=== PATIENT | male | born 1980 | race Caucasian/White ===

== ENCOUNTER 2017-08-28 04:59 | Emergency (ER) | payer SELFPAY ==
[2017-08-28] MEDS ORDERED: Ketorolac 30 MG/ML SDV IVPUSH ONE (05:10)
[2017-08-28] MEDS ORDERED: Ondansetron 4 MG/2 ML SDV IVPUSH ONE (05:10)
--- NOTE | 2017-08-28 05:10 | EDM.PDOC ---
ED HPI GENERAL MEDICAL PROBLEM - General Chief Complaint: Flank Pain Stated Complaint: PAIN ON RIGHT SIDE Time Seen by Provider: 08/28/17 06:20 - History of Present Illness INITIAL COMMENTS - FREE TEXT/NARRATIVE: HISTORY AND PHYSICAL: History of present illness: Patient 37-year-old white male sensory concern of acute right flank pain with associated nausea woken from sleep he denies trauma fever chills chest pain shortness of breath or other concern he denies history urolithiasis Review of systems: As per history of present illness and below otherwise all systems reviewed and negative. Past medical history: As per history of present illness and as reviewed below otherwise noncontributory. Surgical history: As per history of present illness and as reviewed below otherwise noncontributory. Social history: No reported history of drug or alcohol abuse. Family history: As per history of present illness and as reviewed below otherwise noncontributory. Physical exam: HEENT: Atraumatic, normocephalic, pupils reactive, negative for conjunctival pallor or scleral icterus, mucous membranes moist, throat clear, neck supple, nontender, trachea midline. Lungs: Clear to auscultation, breath sounds equal bilaterally, chest nontender. Heart: S1S2, regular, negative for clicks, rubs, or JVD. Abdomen: Soft, nondistended, nontender. Negative for masses or hepatosplenomegaly. Right-sided costovertebral tenderness. Pelvis: Stable nontender. Genitourinary: Deferred. Rectal: Deferred. Extremities: Atraumatic, negative for cords or calf pain. Neurovascular unremarkable. Neuro: Awake, alert, oriented. Cranial nerves II through XII unremarkable. Cerebellum unremarkable. Motor and sensory unremarkable throughout. Exam nonfocal. Diagnostics: CBC CMP UA urine culture and sensitivity CT abdomen and pelvis Therapeutics: Saline 1 L bolus Flomax 0.4 mg by mouth Toradol 30 mg IV Zofran 4 mg IV Dilaudid 1 mg IV Impression: #1 acute right flank pain Definitive disposition and diagnosis as appropriate pending reevaluation and review of above. right flank Pain Score (Numeric/FACES): 9 - Related Data Allergies Allergy/AdvReac Type Severity Reaction Status Date / Time No Known Allergies Allergy Verified 08/28/17 05:06 Home Meds: Home Meds . [No Known Home Meds] 08/28/17 [History] ED ROS GENERAL - Review of Systems Review Of Systems: ROS reveals no pertinent complaints other than HPI. ED EXAM, GENERAL - Physical Exam Exam: See Below (See dictation) Course - Vital Signs Last Recorded V/S: Last Vital Signs Temp 36.2 C 08/28/17 05:07 Pulse 74 08/28/17 06:05 Resp 16 08/28/17 06:05 BP 131/82 08/28/17 06:05 Pulse Ox 97 08/28/17 06:05 - Orders/Labs/Meds Orders: Active Orders 24 hr Category Date Time Status Abdomen Pelvis wo Cont [CT] Stat Exams 08/28/17 05:11 Taken CULTURE URINE [RM] Stat Lab 08/28/17 05:15 Received Labs: Laboratory Tests 08/28/17 08/28/17 08/28/17 Range/Units 05:15 05:23 05:23 WBC 9.98 (4.0-11.0) K/uL RBC 5.72 (4.50-5.90) M/uL Hgb 18.3 H (13.0-17.0) g/dL Hct 52.0 H (38.0-50.0) % MCV 90.9 (80.0-98.0) fL MCH 32.0 (27.0-32.0) pg MCHC 35.2 (31.0-37.0) g/dL RDW Std Deviation 43.3 (28.0-62.0) fl RDW Coeff of Anabelle 13 (11.0-15.0) % Plt Count 240 (150-400) K/uL MPV 9.70 (7.40-12.00) fL Neut % (Auto) 54.3 (48.0-80.0) % Lymph % (Auto) 34.0 (16.0-40.0) % [place] % (Auto) 9.5 (0.0-15.0) % Eos % (Auto) 1.9 (0.0-7.0) % Baso % (Auto) 0.3 (0.0-1.5) % Neut # (Auto) 5.4 (1.4-5.7) K/uL Lymph # (Auto) 3.4 H (0.6-2.4) K/uL [place] # (Auto) 1.0 H (0.0-0.8) K/uL Eos # (Auto) 0.2 (0.0-0.7) K/uL Baso # (Auto) 0.0 (0.0-0.1) K/uL Nucleated RBC % 0.0 /100WBC Nucleated RBCs # 0 K/uL Sodium 142 (136-148) mmol/L Potassium 3.9 (3.5-5.1) mmol/L Chloride 106 (98-107) mmol/L Carbon Dioxide 26.1 (21.0-32.0) mmol/L BUN 11 (7.0-18.0) mg/dL Creatinine 1.2 (0.8-1.3) mg/dL Est Cr Clr Drug Dosing 90.71 mL/min Estimated GFR (MDRD) > 60.0 ml/min Glucose 110 H (74-106) mg/dL Calcium 9.0 (8.5-10.1) mg/dL Total Bilirubin 0.3 (0.2-1.0) mg/dL AST 24 (15-37) IU/L ALT 65 H (14-63) IU/L Alkaline Phosphatase 92 (46-116) U/L Total Protein 7.2 (6.4-8.2) g/dL Albumin 4.0 (3.4-5.0) g/dL Globulin 3.2 (2.0-3.5) g/dL Albumin/Globulin Ratio 1.3 (1.3-2.8) Urine Color DARK YELLOW Urine Appearance SLT CLOUDY Urine pH 5.5 (5.0-8.0) Ur Specific [place] >= 1.030 (1.001-1.035) Urine Protein 30 (NEGATIVE) mg/dL Urine Glucose (UA) NEGATIVE (NEGATIVE) mg/dL Urine Ketones TRACE H (NEGATIVE) mg/dL Urine Occult Blood LARGE H (NEGATIVE) Urine Nitrite NEGATIVE (NEGATIVE) Urine Bilirubin SMALL H (NEGATIVE) Urine Ictotest NEGATIVE Urine Urobilinogen 0.2 (<2.0) EU/dL Ur Leukocyte Esterase NEGATIVE (NEGATIVE) Urine RBC TOO NUMBEROUS TO CT (0-2/HPF) Urine WBC 0-2 (0-5/HPF) Ur Epithelial Cells RARE (NONE-FEW) Calcium Oxalate Crystal MODERATE (NEGATIVE) Urine Bacteria FEW (NEGATIVE) Meds: Medications Discontinued Medications Generic Name Dose Route Start Last Admin Trade Name Freq PRN Reason Stop Dose Admin Hydromorphone HCl 1 mg 08/28/17 05:11 08/28/17 05:30 Dilaudid IVPUSH 08/28/17 05:12 1 mg ONETIME ONE Administration Sodium Chloride 1,000 mls @ 999 mls/hr 08/28/17 05:11 08/28/17 05:30 Normal Saline IV 08/28/17 06:11 999 mls/hr .Bolus ONE Administration Ketorolac Tromethamine 30 mg 08/28/17 05:10 08/28/17 05:29 Toradol IVPUSH 08/28/17 05:11 30 mg ONETIME ONE Administration Ondansetron HCl 4 mg 08/28/17 05:10 08/28/17 05:29 Zofran IVPUSH 08/28/17 05:11 4 mg ONETIME ONE Administration Tamsulosin HCl 0.4 mg 08/28/17 05:15 08/28/17 05:29 Flomax PO 08/28/17 05:16 0.4 mg ONETIME ONE Administration Departure - Departure Time of Disposition: 06:20 Disposition: Home, Self-Care 01 Condition: Good Clinical Impression: Ureterolithiasis - Discharge Information Referrals: PCP,None [Primary Care Provider] - Forms: ED Department Discharge Additional Instructions: The following information is given to patients seen in the emergency department who are being discharged to home. This information is to outline your options for follow-up care. We provide all patients seen in our emergency department with a follow-up referral. The need for follow-up, as well as the timing and circumstances, are variable depending upon the specifics of your emergency department visit. If you don't have a primary care physician on staff, we will provide you with a referral. We always advise you to contact your personal physician following an emergency department visit to inform them of the circumstance of the visit and for follow-up with them and/or the need for any referrals to a consulting specialist. The emergency department will also refer you to a specialist when appropriate. This referral assures that you have the opportunity for followup care with a specialist. All of these measure are taken in an effort to provide you with optimal care, which includes your followup. Under all circumstances we always encourage you to contact your private physician who remains a resource for coordinating your care. When calling for followup care, please make the office aware that this follow-up is from your recent emergency room visit. If for any reason you are refused follow-up, please contact the [facility] emergency department at and asked to speak to the emergency department charge nurse. Yanni Barnes as prescribed follow-up urology michael referral call to schedule appointment return as needed as discussed - My Orders Last 24 Hours: My Active Orders 08/28/17 05:11 Abdomen Pelvis wo Cont [CT] Stat 08/28/17 05:15 CULTURE URINE [RM] Stat - Assessment/Plan Last 24 Hours: My Active Orders 08/28/17 05:11 Abdomen Pelvis wo Cont [CT] Stat 08/28/17 05:15 CULTURE URINE [RM] Stat
[2017-08-28] MEDS ORDERED: Sodium Chloride 0.9% 1,000 ML IV ONE (05:11)
[2017-08-28] MEDS ORDERED: HYDROmorphone 1 MG/ML Syringe IVPUSH ONE (05:11)
[2017-08-28] MEDS ORDERED: Tamsulosin 0.4 MG Cap.ER PO ONE (05:15)
[2017-08-28 05:59] LABS: CHLORIDE,CL 106 mmol/L (98-107); SODIUM,NA 142 mmol/L (136-148)
--- NOTE | 2017-08-28 10:54 | CT ---
EXAM DATE: 08/28/17 PATIENT'S AGE: 37 Patient: AMANDA MONGE Facility: [place], [place] Site . Site : 1980 Study: CT Abdomen/Pelvis [id number] 5:59:23 AM Ordering Physician: Kate Dumont Final Report: Indication: Flank pain. Technique: CT of the abdomen pelvis. No intravenous contrast. Coronal/ sagittal reconstructed images. Comparison: None. Findings: Lung bases: No pleural or pericardial effusion. The heart size is normal. There is dependent atelectasis. There is no acute airspace disease. There is no basilar pneumothorax. Abdomen/pelvis: No solid hepatic mass. No dilation of intrahepatic biliary radicles. No perihepatic ascites. No adrenal mass. Spleen size is normal. No pancreatic mass or pancreatic duct dilation. Benign left renal cyst. This measures 4.7 cm in dimension. Mild right hydronephrosis and hydroureter. There is a stone present in the right proximal ureter, which measures 3 millimeters on series 201, image 82. This is seen at the level of L3. Pelvic phleboliths. No wall thickening within the small bowel or colon. No perienteric edema. No transition point. Anastomotic sutures present about the terminal ileum. No abdominal aortic aneurysm. No adenopathy by size criteria in the pelvis, retroperitoneum, gastrohepatic ligament. Bone windows demonstrate no lytic or blastic bone lesions. The alignment is preserved. On sagittal reconstruction images, vertebral body heights are maintained. Impression: 1. 3 millimeter stone in the right proximal ureter, with mild right hydronephrosis and hydroureter. 2. There are no additional acute findings. Please note that all CT scans at this facility use dose modulation, iterative reconstruction, and/or weight-based dosing when appropriate to reduce radiation dose to as low as reasonably achievable. Dictated by Dagoberto Renner MD @ Aug 28 2017 6:03AM (Electronic Signature) Report Signed by Proxy. VICKIE
== END 2017-08-28 06:37 | disposition home or self-care (01) ==
LOC: MW.ED 04:59
DX: N13.2 Hydronephrosis with renal and ureteral calculous obstruction (principal)
CPT/HCPCS: 74176; 80053; 81001; 85025; 87086; 96361; 96374; 96375; 99284; A9270; J1170; J1885; J2405; J7040; 99283

== ENCOUNTER 2017-10-28 02:05 | Observation (INO) | payer OTHER ==
[2017-10-28] MEDS ORDERED: Ondansetron 4 MG/2 ML SDV IVPUSH ONE (02:20)
[2017-10-28] MEDS ORDERED: Ketorolac 30 MG/ML SDV IVPUSH ONE (02:20)
[2017-10-28] MEDS ORDERED: Tamsulosin 0.4 MG Cap.ER PO ONE (02:20)
[2017-10-28] MEDS: Sodium Chloride 0.9% 1,000 ML IV SCH ×4 (02:32→21:50)
[2017-10-28 02:49] LABS: CHLORIDE,CL 105 mmol/L (98-107); SODIUM,NA 139 mmol/L (136-148)
[2017-10-28] MEDS ORDERED: HYDROmorphone 1 MG/ML Syringe IVPUSH ONE (02:54)
--- NOTE | 2017-10-28 03:25 | EDM.PDOC ---
ED HPI GENERAL MEDICAL PROBLEM - General Chief Complaint: Abdominal Pain Stated Complaint: PAIN ON RIGHT SIDE Time Seen by Provider: 10/28/17 02:58 - History of Present Illness INITIAL COMMENTS - FREE TEXT/NARRATIVE: HISTORY AND PHYSICAL: History of present illness: Patient 37-year-old white male presents with a concern of acute left flank pain he has had a history of urolithiasis he's had some nausea he denies trauma denies fever denies chills Review of systems: As per history of present illness and below otherwise all systems reviewed and negative. Past medical history: As per history of present illness and as reviewed below otherwise noncontributory. Surgical history: As per history of present illness and as reviewed below otherwise noncontributory. Social history: No reported history of drug or alcohol abuse. Family history: As per history of present illness and as reviewed below otherwise noncontributory. Physical exam: HEENT: Atraumatic, normocephalic, pupils reactive, negative for conjunctival pallor or scleral icterus, mucous membranes moist, throat clear, neck supple, nontender, trachea midline. Lungs: Clear to auscultation, breath sounds equal bilaterally, chest nontender. Heart: S1S2, regular, negative for clicks, rubs, or JVD. Abdomen: Soft, nondistended, nontender. Negative for masses or hepatosplenomegaly. Left-sided costovertebral tenderness. Pelvis: Stable nontender. Genitourinary: Deferred. Rectal: Deferred. Extremities: Atraumatic, negative for cords or calf pain. Neurovascular unremarkable. Neuro: Awake, alert, oriented. Cranial nerves II through XII unremarkable. Cerebellum unremarkable. Motor and sensory unremarkable throughout. Exam nonfocal. Diagnostics: CBC CMP UA urine culture and sensitivity CT abdomen and pelvis Therapeutics: Normal saline 1 L bolus Toradol 30 mg IV Zofran 4 mg IV Dilaudid 1 mg IV Flomax 0.4 mg by mouth Impression: #1 acute left flank pain #2 history of ureterolithiasis Definitive disposition and diagnosis as appropriate pending reevaluation and review of above. Abdomen,Right lumbar Pain Score (Numeric/FACES): 7 - Related Data Allergies Allergy/AdvReac Type Severity Reaction Status Date / Time No Known Allergies Allergy Verified 10/28/17 02:30 Home Meds: Home Meds . [No Known Home Meds] 08/28/17 [History] Past Medical History HEENT History: Reports: None Cardiovascular History: Reports: None Respiratory History: Reports: None Gastrointestinal History: Reports: Other (See Below) Other Gastrointestinal History: crohn's ds Genitourinary History: Reports: None Musculoskeletal History: Reports: None Neurological History: Reports: None Psychiatric History: Reports: None Endocrine/Metabolic History: Reports: None Hematologic History: Reports: None Oncologic (Cancer) History: Reports: None Dermatologic History: Reports: None - Past Surgical History Cardiovascular Surgical History: Reports: None GI Surgical History: Reports: Colonoscopy Social & Family History - Family History Family Medical History: Noncontributory - Tobacco Use Smoking Status *Q: Current Every Day Smoker Years of Tobacco use: 24 Packs/Tins Daily: 1 - Recreational Drug Use Recreational Drug Use: No ED ROS GENERAL - Review of Systems Review Of Systems: ROS reveals no pertinent complaints other than HPI. ED EXAM, GENERAL - Physical Exam Exam: See Below (See dictation) Course - Vital Signs Last Recorded V/S: Last Vital Signs Temp 36.4 C 10/28/17 02:05 Pulse 84 10/28/17 02:05 Resp 18 10/28/17 02:05 BP 139/96 H 10/28/17 02:05 Pulse Ox 94 L 10/28/17 02:05 - Orders/Labs/Meds Orders: Active Orders 24 hr Category Date Time Status Abdomen Pelvis wo Cont [CT] Stat Exams 10/28/17 02:19 Taken CULTURE URINE [RM] Stat Lab 10/28/17 02:31 Ordered UA W/MICROSCOPIC [URIN] Stat Lab 10/28/17 02:31 Ordered Sodium Chloride 0.9% [Normal Saline] 1,000 ml Med 10/28/17 02:30 Active IV ASDIRECTED Medication Orders Sodium Chloride (Normal Saline) 1,000 mls @ 999 mls/hr IV ASDIRECTED JACQUELINE Last Admin: 10/28/17 02:32 Dose: 999 mls/hr Labs: Laboratory Tests 10/28/17 10/28/17 10/28/17 Range/Units 02:20 02:20 02:31 WBC 10.47 (4.0-11.0) K/uL RBC 5.37 (4.50-5.90) M/uL Hgb 17.4 H (13.0-17.0) g/dL Hct 48.9 (38.0-50.0) % MCV 91.1 (80.0-98.0) fL MCH 32.4 H (27.0-32.0) pg MCHC 35.6 (31.0-37.0) g/dL RDW Std Deviation 43.0 (28.0-62.0) fl RDW Coeff of Anabelle 13 (11.0-15.0) % Plt Count 208 (150-400) K/uL MPV 9.60 (7.40-12.00) fL Neut % (Auto) 63.9 (48.0-80.0) % Lymph % (Auto) 25.2 (16.0-40.0) % [place] % (Auto) 8.9 (0.0-15.0) % Eos % (Auto) 1.7 (0.0-7.0) % Baso % (Auto) 0.3 (0.0-1.5) % Neut # (Auto) 6.7 H (1.4-5.7) K/uL Lymph # (Auto) 2.6 H (0.6-2.4) K/uL [place] # (Auto) 0.9 H (0.0-0.8) K/uL Eos # (Auto) 0.2 (0.0-0.7) K/uL Baso # (Auto) 0.0 (0.0-0.1) K/uL Nucleated RBC % 0.0 /100WBC Nucleated RBCs # 0 K/uL Sodium 139 (136-148) mmol/L Potassium 3.7 (3.5-5.1) mmol/L Chloride 105 (98-107) mmol/L Carbon Dioxide 26.6 (21.0-32.0) mmol/L BUN 16 (7.0-18.0) mg/dL Creatinine 1.3 (0.8-1.3) mg/dL Est Cr Clr Drug Dosing 83.74 mL/min Estimated GFR (MDRD) > 60.0 ml/min Glucose 149 H (74-106) mg/dL Calcium 8.4 L (8.5-10.1) mg/dL Total Bilirubin 0.3 (0.2-1.0) mg/dL AST 20 (15-37) IU/L ALT 47 (14-63) IU/L Alkaline Phosphatase 85 (46-116) U/L Total Protein 6.7 (6.4-8.2) g/dL Albumin 3.5 (3.4-5.0) g/dL Globulin 3.2 (2.0-3.5) g/dL Albumin/Globulin Ratio 1.1 L (1.3-2.8) Urine Color YELLOW Urine Appearance HAZY Urine pH 5.0 (5.0-8.0) Ur Specific [place] 1.020 (1.001-1.035) Urine Protein NEGATIVE (NEGATIVE) mg/dL Urine Glucose (UA) NEGATIVE (NEGATIVE) mg/dL Urine Ketones NEGATIVE (NEGATIVE) mg/dL Urine Occult Blood LARGE H (NEGATIVE) Urine Nitrite NEGATIVE (NEGATIVE) Urine Bilirubin NEGATIVE (NEGATIVE) Urine Urobilinogen 0.2 (<2.0) EU/dL Ur Leukocyte Esterase NEGATIVE (NEGATIVE) Urine RBC 50-60 (0-2/HPF) Urine WBC 0-2 (0-5/HPF) Ur Epithelial Cells RARE (NONE-FEW) Urine Bacteria FEW (NEGATIVE) Meds: Medications Generic Name Dose Route Start Last Admin Trade Name Brianna PRN Reason Stop Dose Admin Sodium Chloride 1,000 mls @ 999 mls/hr 10/28/17 02:30 10/28/17 02:32 Normal Saline IV 999 mls/hr ASDIRECTED JACQUELINE Administration Discontinued Medications Generic Name Dose Route Start Last Admin Trade Name Brianna PRN Reason Stop Dose Admin Hydromorphone HCl 1 mg 10/28/17 02:54 10/28/17 02:58 Dilaudid IVPUSH 10/28/17 02:55 1 mg ONETIME ONE Administration Ketorolac Tromethamine 30 mg 10/28/17 02:20 10/28/17 02:32 Toradol IVPUSH 10/28/17 02:21 30 mg ONETIME ONE Administration Ondansetron HCl 4 mg 10/28/17 02:20 10/28/17 02:32 Zofran IVPUSH 10/28/17 02:21 4 mg ONETIME ONE Administration Tamsulosin HCl 0.4 mg 10/28/17 02:20 10/28/17 02:32 Flomax PO 10/28/17 02:21 0.4 mg ONETIME ONE Administration Departure - Departure Time of Disposition: 03:23 Disposition: Refer to Observation Condition: Good Clinical Impression: Ureterolithiasis - Discharge Information Referrals: PCP,None [Primary Care Provider] - - My Orders Last 24 Hours: My Active Orders 10/28/17 02:19 Abdomen Pelvis wo Cont [CT] Stat 10/28/17 02:30 Sodium Chloride 0.9% [Normal Saline] 1,000 ml IV ASDIRECTED 10/28/17 02:31 CULTURE URINE [RM] Stat UA W/MICROSCOPIC [URIN] Stat - Assessment/Plan Last 24 Hours: My Active Orders 10/28/17 02:19 Abdomen Pelvis wo Cont [CT] Stat 10/28/17 02:30 Sodium Chloride 0.9% [Normal Saline] 1,000 ml IV ASDIRECTED 10/28/17 02:31 CULTURE URINE [RM] Stat UA W/MICROSCOPIC [URIN] Stat
[2017-10-28] MEDS ORDERED: Ondansetron 4 MG/2 ML SDV IVPUSH PRN ×2 (03:31→03:41)
[2017-10-28] MEDS: HYDROmorphone 2 MG/ML SDV IVPUSH PRN ×2 (10:52→16:16)
--- NOTE | 2017-10-28 15:20 | PCM.PREANE ---
Preanesthetic Assessment - Anesthesia/Transfusion/Family Hx Anesthesia History: Prior Anesthesia Without Reaction Family History of Anesthesia Reaction: No Transfusion History: No Prior Transfusion(s) Intubation History: Unknown - Review of Systems General: No Symptoms Pulmonary: No Symptoms Cardiovascular: No Symptoms Gastrointestinal: No Symptoms Neurological: No Symptoms Other: Reports: None - Physical Assessment O2 Sat by Pulse Oximetry: 95 Respiratory Rate: 16 Vital Signs: Last Vital Signs Temp 36.4 C 10/28/17 12:00 Pulse 59 L 10/28/17 12:00 Resp 16 10/28/17 12:00 BP 148/81 H 10/28/17 12:00 Pulse Ox 95 10/28/17 12:00 Height: 1.83 m Weight: 114 kg ASA Class: 2E Mental Status: Alert & Oriented x3 Airway Class: Mallampati = 2 Dentition: Reports: Dentures (upper and lower) Thyro-Mental Finger Breadths: 3 Mouth Opening Finger Breadths: 3 ROM/Head Extension: Full Lungs: Clear to Auscultation, Normal Respiratory Effort Cardiovascular: Regular Rate, Regular Rhythm - Lab Values: Laboratory Last Values WBC 10.47 K/uL (4.0-11.0) 10/28/17 02:20 RBC 5.37 M/uL (4.50-5.90) 10/28/17 02:20 Hgb 17.4 g/dL (13.0-17.0) H 10/28/17 02:20 Hct 48.9 % (38.0-50.0) 10/28/17 02:20 MCV 91.1 fL (80.0-98.0) 10/28/17 02:20 MCH 32.4 pg (27.0-32.0) H 10/28/17 02:20 MCHC 35.6 g/dL (31.0-37.0) 10/28/17 02:20 RDW Std Deviation 43.0 fl (28.0-62.0) 10/28/17 02:20 RDW Coeff of Anabelle 13 % (11.0-15.0) 10/28/17 02:20 Plt Count 208 K/uL (150-400) 10/28/17 02:20 MPV 9.60 fL (7.40-12.00) 10/28/17 02:20 Neut % (Auto) 63.9 % (48.0-80.0) 10/28/17 02:20 Lymph % (Auto) 25.2 % (16.0-40.0) 10/28/17 02:20 [place] % (Auto) 8.9 % (0.0-15.0) 10/28/17 02:20 Eos % (Auto) 1.7 % (0.0-7.0) 10/28/17 02:20 Baso % (Auto) 0.3 % (0.0-1.5) 10/28/17 02:20 Neut # (Auto) 6.7 K/uL (1.4-5.7) H 10/28/17 02:20 Lymph # (Auto) 2.6 K/uL (0.6-2.4) H 10/28/17 02:20 [place] # (Auto) 0.9 K/uL (0.0-0.8) H 10/28/17 02:20 Eos # (Auto) 0.2 K/uL (0.0-0.7) 10/28/17 02:20 Baso # (Auto) 0.0 K/uL (0.0-0.1) 10/28/17 02:20 Nucleated RBC % 0.0 /100WBC 10/28/17 02:20 Nucleated RBCs # 0 K/uL 10/28/17 02:20 Sodium 139 mmol/L (136-148) 10/28/17 02:20 Potassium 3.7 mmol/L (3.5-5.1) 10/28/17 02:20 Chloride 105 mmol/L (98-107) 10/28/17 02:20 Carbon Dioxide 26.6 mmol/L (21.0-32.0) 10/28/17 02:20 BUN 16 mg/dL (7.0-18.0) 10/28/17 02:20 Creatinine 1.3 mg/dL (0.8-1.3) 10/28/17 02:20 Est Cr Clr Drug Dosing 83.74 mL/min 10/28/17 02:20 Estimated GFR (MDRD) > 60.0 ml/min 10/28/17 02:20 Glucose 149 mg/dL (74-106) H 10/28/17 02:20 Calcium 8.4 mg/dL (8.5-10.1) L 10/28/17 02:20 Total Bilirubin 0.3 mg/dL (0.2-1.0) 10/28/17 02:20 AST 20 IU/L (15-37) 10/28/17 02:20 ALT 47 IU/L (14-63) 10/28/17 02:20 Alkaline Phosphatase 85 U/L (46-116) 10/28/17 02:20 Total Protein 6.7 g/dL (6.4-8.2) 10/28/17 02:20 Albumin 3.5 g/dL (3.4-5.0) 10/28/17 02:20 Globulin 3.2 g/dL (2.0-3.5) 10/28/17 02:20 Albumin/Globulin Ratio 1.1 (1.3-2.8) L 10/28/17 02:20 Urine Color YELLOW 10/28/17 02:31 Urine Appearance HAZY 10/28/17 02:31 Urine pH 5.0 (5.0-8.0) 10/28/17 02:31 Ur Specific [place] 1.020 (1.001-1.035) 10/28/17 02:31 Urine Protein NEGATIVE mg/dL (NEGATIVE) 10/28/17 02:31 Urine Glucose (UA) NEGATIVE mg/dL (NEGATIVE) 10/28/17 02:31 Urine Ketones NEGATIVE mg/dL (NEGATIVE) 10/28/17 02:31 Urine Occult Blood LARGE (NEGATIVE) H 10/28/17 02:31 Urine Nitrite NEGATIVE (NEGATIVE) 10/28/17 02:31 Urine Bilirubin NEGATIVE (NEGATIVE) 10/28/17 02:31 Urine Urobilinogen 0.2 EU/dL (<2.0) 10/28/17 02:31 Ur Leukocyte Esterase NEGATIVE (NEGATIVE) 10/28/17 02:31 Urine RBC 50-60 (0-2/HPF) 10/28/17 02:31 Urine WBC 0-2 (0-5/HPF) 10/28/17 02:31 Ur Epithelial Cells RARE (NONE-FEW) 10/28/17 02:31 Urine Bacteria FEW (NEGATIVE) 10/28/17 02:31 - Allergies Allergies/Adverse Reactions: Allergies Allergy/AdvReac Type Severity Reaction Status Date / Time No Known Allergies Allergy Verified 10/28/17 02:30 - Blood Blood Available: No - Anesthesia Plan Pre-Op Medication Ordered: None - Acknowledgements Anesthesia Type Planned: General Anesthesia Pt an Appropriate Candidate for the Planned Anesthesia: Yes Alternatives and Risks of Anesthesia Discussed w Pt/Guardian: Yes Pt/Guardian Understands and Agrees with Anesthesia Plan: Yes PreAnesthesia Questionnaire HEENT History: Reports: None Cardiovascular History: Reports: None Respiratory History: Reports: None Gastrointestinal History: Reports: Other (See Below) Other Gastrointestinal History: crohn's ds Genitourinary History: Reports: Other (See Below) Other Genitourinary History: Urolithiasis Musculoskeletal History: Reports: None Neurological History: Reports: None Psychiatric History: Reports: None Endocrine/Metabolic History: Reports: Obesity/BMI 30+ Hematologic History: Reports: None Oncologic (Cancer) History: Reports: None Dermatologic History: Reports: None - Infectious Disease History Infectious Disease History: Reports: Chicken Pox - Past Surgical History Cardiovascular Surgical History: Reports: None GI Surgical History: Reports: Colonoscopy, Other (See Below) (bowel anastomosis sec. to Crohns disease and anastomosis take-down) Male Surgical History: Reports: None Musculoskeletal Surgical History: Reports: Arthroscopic Knee (left ACL repair), Shoulder Surgery (left shoulder ligament recostruction), Other (See Below) ( left thumb ligaments repair) - SUBSTANCE USE Smoking Status *Q: Current Every Day Smoker (1 ppd) Tobacco Use Within Last Twelve Months: Cigarettes Recreational Drug Use History: No - HOME MEDS Home Medications: Home Meds . [No Known Home Meds] 08/28/17 [History] - CURRENT (IN HOUSE) MEDS Current Meds: Current Medications Hydromorphone HCl (Dilaudid) 1 mg IVPUSH Q4H PRN PRN Reason: Pain (severe 7-10) Last Admin: 10/28/17 10:52 Dose: 1 mg Sodium Chloride (Normal Saline) 1,000 mls @ 125 mls/hr IV ASDIRECTED JACQUELINE Last Admin: 10/28/17 10:26 Dose: 200 mls/hr Ondansetron HCl (Zofran) 4 mg IVPUSH Q4H PRN PRN Reason: Vomiting Discontinued Medications Hydromorphone HCl (Dilaudid) 1 mg IVPUSH ONETIME ONE Stop: 10/28/17 02:55 Last Admin: 10/28/17 02:58 Dose: 1 mg Sodium Chloride (Normal Saline) 1,000 mls @ 200 mls/hr IV ASDIRECTED JACQUELINE Last Admin: 10/28/17 05:25 Dose: 999 mls/hr Ketorolac Tromethamine (Toradol) 30 mg IVPUSH ONETIME ONE Stop: 10/28/17 02:21 Last Admin: 10/28/17 02:32 Dose: 30 mg Ondansetron HCl (Zofran) 4 mg IVPUSH ONETIME ONE Stop: 10/28/17 02:21 Last Admin: 10/28/17 02:32 Dose: 4 mg Ondansetron HCl (Zofran) 4 mg IVPUSH Q4H PRN PRN Reason: Vomiting Tamsulosin HCl (Flomax) 0.4 mg PO ONETIME ONE Stop: 10/28/17 02:21 Last Admin: 10/28/17 02:32 Dose: 0.4 mg
--- NOTE | 2017-10-28 16:26 | CT ---
EXAM DATE: 10/28/17 PATIENT'S AGE: 37 Patient: AMANDA MONGE Facility: [place], [place] Site . Site : 1980 Study: CT Abdomen/Pelvis W/O [id number]/[id number] 2:55:25 AM Ordering Physician: Doctor Hickey Final Report: INDICATION: Right flank pain TECHNIQUE: CT Abdomen and pelvis without i.v. contrast. Coronal and sagittal reformats were obtained. CONTRAST: None COMPARISON: 08/28/2017 FINDINGS: Lower chest: Mild bibasilar ground-glass atelectasis present. Discoid atelectasis is also noted in the left lower lobe. Liver: Unremarkable. Spleen: Unremarkable. Pancreas: Unremarkable. Gallbladder: Unremarkable. Kidney: There is a 6 mm stone present in the distal left ureter causing mild left hydroureter and moderate right renal pelvic caliectasis. There is a lobulated hypodense lesion in the anterior mid zone of the left kidney measuring 5.2 x 4.6 cm. Adrenal: Unremarkable. Bowel: Unremarkable. The appendix is not visualized and likely surgically absent. Vascular: Unremarkable. Lymph: Unremarkable. Peritoneum: Unremarkable. No pneumoperitoneum is seen. No significant ascites is noted. Pelvis: Unremarkable. Soft tissue: Unremarkable. Bone: Unremarkable for age. IMPRESSIONS: 1. There is a 6 mm stone present in the distal left ureter causing mild left hydroureter and moderate right renal pelvic caliectasis. 2. There is a lobulated hypodense lesion in the anterior mid zone of the left kidney measuring 5.2 x 4.6 cm. It is incompletely assessed without contrast and not significantly changed from prior exam. Further evaluation with outpatient ultrasound or contrast enhanced MRI is recommended. Dictated by Fabrizio Montes MD @ 10/28/2017 3:10:17 AM Please note that all CT scans at this facility use dose modulation, iterative reconstruction, and/or weight-based dosing when appropriate to reduce radiation dose to as low as reasonably achievable. Dictated by: Fabrizio Montes MD @ 10/28/2017 03:10:20 (Electronic Signature) MTDD
[2017-10-28] MEDS ORDERED: Iopamidol 408 MG/ML 50 ML SDV ONE (17:26)
[2017-10-28] MEDS ORDERED: Midazolam 1 MG/ML 2 ML SDV ONE (18:37)
[2017-10-28] MEDS ORDERED: fentaNYL 250 MCG/5 ML SDV ONE (18:37)
[2017-10-28] MEDS ORDERED: Propofol 200 MG/20 ML SDV ONE (18:37)
[2017-10-28] MEDS ORDERED: ceFAZolin/Dextrose,Iso-Osmotic 2 GM/50 ML Duplex Bag IV ONE (20:20)
--- NOTE | 2017-10-28 21:28 | OR ---
SURGEON: Aroldo Del Castillo M.D. DATE OF PROCEDURE: 10/28/2017 PREOPERATIVE DIAGNOSIS: Right upper ureteral stone. POSTOPERATIVE DIAGNOSIS: Right upper ureteral stone. OPERATIONS: Cystoscopy and double-J stent placement. DESCRIPTION OF PROCEDURE: The patient was given general anesthesia, placed in dorsal lithotomy position, prepped and draped in sterile drapes. Cystourethroscopy was done and that was normal. A guidewire was advanced in the right ureter. The stone could not be visualized on fluoro, and I decided to put a double-J stent in case the stone that can be dissolved. While the stent is still in the upper ureter, it was clear that he had a hydronephrotic drip at that point coming through the stent, which would indicate that the stone is still there and then I bypassed the stone. The procedure was continued until the double-J stent was in place that was confirmed on fluoroscopy. The bladder was emptied, and the patient was moved to recovery room in good condition. PLAN: I will get a KUB in the morning. If I cannot see the stone, then I will go ahead and start colonizing his urine to dissolve the stone. JACLYN / MARIA ESTHER /[id number]
[2017-10-29] MEDS: Sodium Chloride 0.9% 1,000 ML IV SCH (06:05)
--- NOTE | 2017-10-29 09:42 | CR ---
EXAMINATION: Abdomen HISTORY: Kidney stone COMPARISON: CT dated 10/28/2017 TECHNIQUE: AP abdomen FINDINGS: The right nephroureteral stent is noted. No abnormal calcifications project over the kidney s or along the courses of the ureters. No organomegaly. Nonobstructive bowel gas pattern. Pelvic phle boliths are noted. Visualized osseous structures appear normal. IMPRESSION: 1. Right-sided nephroureteral stent noted.
--- NOTE | 2017-10-29 09:45 | PCM48HPAN ---
Post Anesthesia Note - EVALUATION WITHIN 48HRS OF ANESTHETIC Vital Signs in Normal Range: Yes Patient Participated in Evaluation: Yes Respiratory Function Stable: Yes Airway Patent: Yes Cardiovascular Function Stable: Yes Hydration Status Stable: Yes Pain Control Satisfactory: Yes Nausea and Vomiting Control Satisfactory: Yes Mental Status Recovered: Yes Resp Rate: 19
--- NOTE | 2017-10-29 09:57 | CR ---
EXAMINATION: Ureteroscopy HISTORY: Right stent placement COMPARISON: CT dated 10/28/2017 TECHNIQUE: 2 fluoroscopic images provided FINDINGS/IMPRESSION: Operative control films demonstrate selection of the right ureter with placement of a right nephroureteral stent.
--- NOTE | 2017-10-29 11:59 | DISCH ---
DATE OF DISCHARGE: 10/29/2017 PRIMARY CARE PHYSICIAN: None PCP This 37-year-old was admitted through the emergency room yesterday with sudden onset of right flank and right-sided abdominal pain. CT scan showed a 6 mm right upper ureteral stone. He was taken to the operating room yesterday where under fluoroscopy, the stone could not be visualized so I put a double-J stent in. He did well postoperatively. He had some pain because of occasional bladder spasms and he has pain in his kidney when he voids. He is sent home on Polycitra-K under the assumption that this is a uric acid stone. He is to take 1 packet 3 times a day for the next 3 months. He is also sent home on Lorcet , he is to take half every 6 hours as needed for pain. He is to come back and see me in 2 to 3 months. We will do a CT scan to make sure the stone has gone and go from there. JACLYN / MARIA ESTHER /[id number]
== END 2017-10-29 10:15 | disposition home or self-care (01) ==
LOC: MW.ED 02:05 → MW.MS 03:25
PROVIDERS: ADMIT Urology; ATTEND Urology
DX: N13.2 Hydronephrosis with renal and ureteral calculous obstruction (principal); F17.210 Nicotine dependence, cigarettes, uncomplicated; K50.90 Crohn's disease, unspecified, without complications; E66.9 Obesity, unspecified; Z68.34 Body mass index [BMI] 34.0-34.9, adult; Z87.442 Personal history of urinary calculi
CPT/HCPCS: 36415; 52332; 74018; 74176; 76000; 80053; 81001; 85025; 87086; 96361; 96374; 96375; 96376; 99285; A9270; C1769; C2625; G0378; J0690; J1170; J1885; J2250; J2405; J3010; J7040; 99283; J2704; Q9966

== ENCOUNTER 2017-11-14 09:18 | Day surgery (SDC) | payer OTHER ==
[~2017-11-14 09:18] MED LIST: Lactated Ringers 1,000 ML IV SCH; Sodium Chloride 0.9% 10 ML Syringe FLUSH PRN; Sodium Chloride 0.9% 2.5 ML Syringe FLUSH PRN
--- NOTE | 2017-11-14 09:50 | PCM.PREANE ---
Preanesthetic Assessment - Anesthesia/Transfusion/Family Hx Anesthesia History: Prior Anesthesia Without Reaction Family History of Anesthesia Reaction: No Transfusion History: No Prior Transfusion(s) Intubation History: Unknown - Review of Systems General: No Symptoms Pulmonary: No Symptoms Cardiovascular: No Symptoms Gastrointestinal: No Symptoms Neurological: No Symptoms Other: Reports: None - Physical Assessment NPO Status Date: 11/13/17 NPO Status Time: 22:00 O2 Sat by Pulse Oximetry: 95 Respiratory Rate: 16 Vital Signs: Last Vital Signs Temp 36.3 C 11/14/17 09:20 Pulse 71 11/14/17 09:20 Resp 16 11/14/17 09:20 BP 112/80 11/14/17 09:20 Pulse Ox 95 11/14/17 09:20 Height: 1.83 m Weight: 112.945 kg ASA Class: 2 Mental Status: Alert & Oriented x3 Airway Class: Mallampati = 2 Dentition: Reports: Dentures (upper and lower) Thyro-Mental Finger Breadths: 3 Mouth Opening Finger Breadths: 2 ROM/Head Extension: Full Lungs: Clear to Auscultation, Normal Respiratory Effort Cardiovascular: Regular Rate, Regular Rhythm - Allergies Allergies/Adverse Reactions: Allergies Allergy/AdvReac Type Severity Reaction Status Date / Time No Known Allergies Allergy Verified 11/13/17 16:08 - Blood Blood Available: No - Anesthesia Plan Pre-Op Medication Ordered: None - Acknowledgements Anesthesia Type Planned: General Anesthesia Pt an Appropriate Candidate for the Planned Anesthesia: Yes Alternatives and Risks of Anesthesia Discussed w Pt/Guardian: Yes Pt/Guardian Understands and Agrees with Anesthesia Plan: Yes PreAnesthesia Questionnaire HEENT History: Reports: Other (See Below) Other HEENT History: wears contacts, has upper and lower dentures Cardiovascular History: Reports: None Respiratory History: Reports: None Gastrointestinal History: Reports: Other (See Below) Other Gastrointestinal History: crohn's ds Genitourinary History: Reports: Renal Calculus Musculoskeletal History: Reports: None Neurological History: Reports: None Psychiatric History: Reports: None Endocrine/Metabolic History: Reports: Obesity/BMI 30+ Hematologic History: Reports: None Oncologic (Cancer) History: Reports: None Dermatologic History: Reports: None - Infectious Disease History Infectious Disease History: Reports: Chicken Pox - Past Surgical History Cardiovascular Surgical History: Reports: None GI Surgical History: Reports: Colon, Colonoscopy, Other (See Below) Other GI Surgeries/Procedures: colon resection x2 Other Female Surgeries/Procedures: insertion of Double J stent Male Surgical History: Reports: Other (See Below) Musculoskeletal Surgical History: Reports: Arthroscopic Knee, Shoulder Surgery Other Musculoskeletal Surgeries/Procedures:: ACL repair left knee, RTCR left shoulder - SUBSTANCE USE Smoking Status *Q: Current Every Day Smoker (1 ppd) Tobacco Use Within Last Twelve Months: Cigarettes Recreational Drug Use History: No - HOME MEDS Home Medications: Home Meds Hydrocodone/Acetaminophen [Lorcet Hd 10-325 mg Tablet] 0.5 tab PO Q6H PRN #20 tablet 10/29/17 [Rx] - CURRENT (IN HOUSE) MEDS Current Meds: Current Medications Lactated Ringer's (Ringers, Lactated) 1,000 mls @ 100 mls/hr IV ASDIRECTED JACQUELINE Sodium Chloride (Saline Flush) 10 ml FLUSH ASDIRECTED PRN PRN Reason: Keep Vein Open Sodium Chloride (Saline Flush) 2.5 ml FLUSH ASDIRECTED PRN PRN Reason: Keep Vein Open
[2017-11-14] MEDS ORDERED: Lidocaine 2% 5 ML SDV ONE (09:59)
[2017-11-14] MEDS ORDERED: Midazolam 1 MG/ML 2 ML SDV ONE (10:00)
[2017-11-14] MEDS ORDERED: fentaNYL 250 MCG/5 ML SDV ONE (10:00)
[2017-11-14] MEDS ORDERED: Propofol 200 MG/20 ML SDV ONE (10:00)
[2017-11-14] MEDS ORDERED: fentaNYL 100 MCG/2 ML SDV IVPUSH PRN (11:18)
--- NOTE | 2017-11-14 11:32 | PCM.POSTAN ---
POST ANESTHESIA ASSESSMENT - MENTAL STATUS Mental Status: Alert, Oriented - RESPIRATORY Respiratory Status: Respiratory Rate WNL, Airway Patent, O2 Saturation Stable - CARDIOVASCULAR CV Status: Pulse Rate WNL, Blood Pressure Stable - GASTROINTESTINAL GI Status: No Symptoms - POST OP HYDRATION Hydration Status: Adequate & Stable
--- NOTE | 2017-11-14 12:45 | PCM48HPAN ---
Post Anesthesia Note - EVALUATION WITHIN 48HRS OF ANESTHETIC Vital Signs in Normal Range: Yes Patient Participated in Evaluation: Yes Respiratory Function Stable: Yes Airway Patent: Yes Cardiovascular Function Stable: Yes Hydration Status Stable: Yes Pain Control Satisfactory: Yes Nausea and Vomiting Control Satisfactory: Yes Mental Status Recovered: Yes Resp Rate: 15
--- NOTE | 2017-11-14 13:25 | OR ---
SURGEON: Aroldo Del Castillo M.D. DATE OF PROCEDURE: 11/14/2017 PREOPERATIVE DIAGNOSIS: Right ureteral stone. POSTOPERATIVE DIAGNOSIS: Right ureteral stone. OPERATIONS: Cystoscopy, double-J stent removal. HISTORY: A 37-year-old was seen for a ureteral stone evaluation included ureteroscopy and double-J stent placement. The stone was radiolucent. The stent was left in an attempt to dissolve the stone or he was given Polycitra K. However, he did not tolerate the treatment and he is back to have the stent taken out. A CT scan done yesterday showed the stone to be in the right lower ureter, slightly smaller than the stent. PROCEDURE IN DETAIL: The patient was given adequate sedation, placed in dorsal lithotomy position, prepped and draped in sterile drapes. Cystourethroscopy was done and double-J stent was grasped and removed. The patient tolerated the procedure well and left the room in good condition. JACLYN / MARIA ESTHER /[id number]
== END 2017-11-14 12:15 | disposition home or self-care (01) ==
LOC: MW.SDS 09:18
PROVIDERS: ATTEND Urology
DX: N20.1 Calculus of ureter (principal); K50.90 Crohn's disease, unspecified, without complications; E66.9 Obesity, unspecified; F17.210 Nicotine dependence, cigarettes, uncomplicated; Z68.33 Body mass index [BMI] 33.0-33.9, adult
CPT/HCPCS: 52310; J2250; J3010; J7120; J2704